=== PATIENT | female | born 1990 | race American Indian/Alaskan Native ===

== ENCOUNTER 2021-11-17 11:15 | Emergency (ER) | payer MEDICAID ==
[2021-11-17 11:44] VITALS: BP 111/70
[2021-11-17] MEDS ORDERED: ONDANSETRON 4 MG/2 ML INJ IV ONE (15:24)
[2021-11-17] MEDS ORDERED: SODIUM CHLORIDE 0.9% 1000 ML 1,000 ML IV ONE (15:24)
[2021-11-17 16:04] LABS: Hematocrit 39.9 % (30.3-42.9); Hemoglobin 13.2 gm/dl (10.1-14.3); Mean Corpuscular HGB Conc 33 % (30-34); Mean Corpuscular Volume 87 fl (79-97); Platelet Count 200 K/mm3 (140-440); Red Blood Count 4.57 M/mm3 (3.65-5.03); Red Cell Distribution Width 13.3 % (13.2-15.2)
[2021-11-17 16:22] LABS: Blood Urea Nitrogen 6 mg/dL (7-17); Calcium 9.5 mg/dL (8.4-10.2); Hemolysis Index 5
[2021-11-17 16:24] LABS: BUN/Creatinine Ratio 10
--- NOTE | 2021-11-17 17:32 | Ultrasound Report ---
OB Ultrasound HISTORY: preg, abdominal pain. TECHNIQUE: Grayscale and color imaging performed. COMPARISON: None FINDINGS: Uterus measures 12.5 x 7.9 x 9.5 cm with intrauterine gestation demonstrating a crown-rump length of 17 mm which corresponds with an EGA of 8 weeks and 1 day. There is cardiac activity w ith a heart rate of 169 bpm. A yolk sac is also visualized. Small crescentic hypoechoic structure see n adjacent to the gestational sac suggesting subchorionic hemorrhage measuring 3.7 cm in maximal licha th. Both ovaries appear unremarkable. No pelvic free fluid. IMPRESSION: Single viable intrauterine gestation as above with small subchorionic hemorrhage. Signer Name: Samuel Ledesma MD Signed: 11/17/2021 5:28 PM Workstation Name: [id number]
[2021-11-17 18:16] LABS: Bilirubin,Urine NEG (Negative); Blood,Urine NEG (Negative); Color,Urine Amber (Yellow); Hyaline Casts,Urine 1 /LPF; Mucus,Urine 2+ /HPF
--- NOTE | 2021-11-17 18:26 | Emergency Department Report ---
ED Abdominal Pain HPI - General Chief Complaint: Medical Clearance Stated Complaint: VOMITING Time Seen by Provider: 11/17/21 15:11 Source: patient Mode of arrival: Ambulatory Limitations: No Limitations - History of Present Illness Initial Comments: 31-year-old black female with no past medical history resents to the emergency department for evaluation of 2-week history of nausea vomiting and left upper quadrant pain. She states that she is 9 weeks and the symptoms have been persistent for the past 2 weeks. She states that she she has been unable to eat anything. She states that left upper quadrant pain is 7 out of 10 and she has also had persistent weakness and intermittent fevers. She denies dysuria and vaginal discharge. She states that she has not seen an OB and does not have an appointment yet. MD Complaint: abdominal pain -: Gradual, week(s) (To) Location: [facility] Radiation: none Migration to: no migration Severity: moderate Severity scale (0 -10): 7 Quality: cramping, aching Consistency: constant Associated Symptoms: nausea, vomiting, fever. denies: diarrhea, chills, dy suria, hematemesis, hematochezia, melena, hematuria, anorexia, syncope - Related Data LMP (females 10-50): Previous Rx's Medication Instructions Recorded Last Taken Type Ondansetron [Zofran Odt] 4 mg PO Q8HR PRN #12 tab.rapdis 11/17/21 Unknown Rx Allergies Allergy/AdvReac Type Severity Reaction Status Date / Time No Known Allergies Allergy Verified 11/17/21 11:44 ED Review of Systems ROS: Stated complaint: VOMITING Other details as noted in HPI Comment: All other systems reviewed and negative Constitutional: fever. denies: chills, malaise, weakness ENT: denies: congestion Respiratory: denies: cough, orthopnea, shortness of breath, SOB with exertion, SOB at rest, stridor, wheezing Cardiovascular: denies: chest pain, palpitations, dyspnea on exertion, orthopnea, edema, syncope, paroxysmal nocturnal dyspnea Gastrointestinal: abdominal pain, nausea, vomiting. denies: diarrhea, hematemesis, melena, hematochezia Genitourinary: denies: urgency, dysuria, frequency, hematuria, discharge Musculoskeletal: denies: back pain Neurological: denies: headache, weakness, numbness, paresthesias, confusion, abnormal gait ED Past Medical Hx - Medications Home Medications: Home Medications Medication Instructions Recorded Confirmed Last Taken Type Ondansetron [Zofran Odt] 4 mg PO Q8HR PRN #12 tab.rapdis 11/17/21 Unknown Rx ED Physical Exam - General Limitations: No Limitations General appearance: alert, in no apparent distress - Head Head exam: Present: atraumatic, normocephalic - Eye Eye exam: Present: normal appearance. Absent: conjunctival injection - Neck Neck exam: Present: normal inspection, full ROM. Absent: tenderness, lymphadenopathy - Respiratory Respiratory exam: Present: normal lung sounds bilaterally. Absent: respiratory distress, wheezes, rales, rhonchi, stridor, chest wall tenderness - Cardiovascular Cardiovascular Exam: Present: regular rate, normal heart sounds - GI/Abdominal GI/Abdominal exam: Present: soft, tenderness (Left upper quadrant), normal bowel sounds. Absent: distended, guarding, rebound, rigid - Extremities Exam Extremities exam: Present: normal inspection, normal capillary refill. Absent: pedal edema, joint swelling, calf tenderness - Back Exam Back exam: Present: normal inspection. Absent: CVA tenderness (R), CVA tenderness (L), vertebral tenderness - Neurological Exam Neurological exam: Present: alert, oriented X3, normal gait - Psychiatric Psychiatric exam: Present: normal affect, normal mood - Skin Skin exam: Present: warm, dry, intact, normal color ED Course Vital Signs 11/17/21 11:41 Temperature 97.4 F L Pulse Rate 83 Respiratory 16 Rate Blood Pressure 111/70 [Left] O2 Sat by Pulse 99 Oximetry - Reevaluation(s) Reevaluation #1: 11/17/21 18:23 Nausea vomiting and abdominal pain resolved. Patient states she feels much better, and she has eaten and drank 2 to 3 cups of juice without vomiting. ED Medical Decision Making - Lab Data Result diagrams: 11/17/21 15:43 11/17/21 15:43 - Radiology Data Radiology results: report reviewed, image reviewed ultrasound: FINDINGS: Uterus measures 12.5 x 7.9 x 9.5 cm with intrauterine gestation demonstrating a crown- rump length of 17 mm which corresponds with an EGA of 8 weeks and 1 day. There is cardiac activity with a heart rate of 169 bpm. A yolk sac is also visualized. Small crescentic hypoechoic structure seen adjacent to the gestational sac suggesting subchorionic hemorrhage measuring 3.7 cm in maximal length. Both ovaries appear unremarkable. No pelvic free fluid. IMPRESSION: Single viable intrauterine gestation as above with small subchorionic hemorrhage. - Medical Decision Making 31-year-old black female with no past medical history resents to the emergency department for evaluation of 2-week history of nausea vomiting and left upper quadrant pain. She states that she is 9 weeks and the symptoms have been persistent for the past 2 weeks. She states that she she has been unable to eat anything. She states that left upper quadrant pain is 7 out of 10 and she has also had persistent weakness and intermittent fevers. She denies dysuria and vaginal discharge. She states that she has not seen an OB and does not have an appointment yet. Nausea vomiting abdominal pain resolved after IV fluids and Zofran. Patient able to tolerate p.o. intake. Physical exam unremarkable, and no gross abnormalities noted on labs, and urine negative for urinary tract infection. Ultrasound positive for IUP at 8 weeks with small subchorionic hematoma. Patient be discharged home with prescription for Zofran and advised to follow-up with [facility] for further evaluation and management. She is advised to follow-up in the emergency department as needed. She verbalizes understanding of and agreement with plan of care. Critical care attestation.: If time is entered above; I have spent that time in minutes in the direct care of this critically ill patient, excluding procedure time. ED Disposition Clinical Impression: Nausea and vomiting during prior to 22 weeks gestation, Abdominal pain during in first trimester Disposition: 01 HOME / SELF CARE / HOMELESS Is pt being admited?: No Does the pt Need Aspirin: No Condition: Stable Instructions: Abdominal Pain During , Nrax-jo-Axax, Morning Sickness, [id number] Additional Instructions: Take medications as prescribed. Follow-up with [facility] for further management and evaluation. Return to the emergency department as needed. Prescriptions: Ondansetron [Zofran Odt] 4 mg PO Q8HR PRN #12 tab.rapdis PRN Reason: Nausea And Vomiting Referrals: [facility] [Provider Group] - 3-5 Days [facility] [Provider Group] - 3-5 Days [facility] [Provider Group] - 3-5 Days Forms: Work/School Release Form(ED) Time of Disposition: 18:25
== END 2021-11-17 18:25 | disposition home or self-care (01) ==
LOC: ED 11:15
DX: O21.8 Other vomiting complicating pregnancy (principal); O26.891 Other specified pregnancy related conditions, first trimester; R10.12 Left upper quadrant pain; Z3A.08 8 weeks gestation of pregnancy
CPT/HCPCS: 36415; 76801; 80048; 81001; 84702; 85027; 96361; 96374; 99284; J2405; J7030